=== PATIENT | female | born 1955 | race Caucasian/White ===

== ENCOUNTER 2017-06-07 07:58 | Emergency (ER) | payer BC ==
[2017-06-07 08:17] VITALS: BP 113/58
--- NOTE | 2017-06-07 08:58 | UC ---
Throat Pain/Nasal Octavio HPI - HPI Summary HPI Summary: 61 year old female wit sinus complaint. Also c/o cough, tooth pain for 3 days, and congestion worsening over past few days. with sinus infection and ear infection at home. [ End ] - History of Current Complaint Chief Complaint: UCRespiratory Stated Complaint: SINUS Time Seen by Provider: 06/07/17 08:54 Hx Obtained From: Patient Hx Last Menstrual Period: n/a Onset/Duration: Gradual Onset Severity: Moderate Cough: Productive - Allergies/Home Medications Allergies/Adverse Reactions: Allergies Allergy/AdvReac Type Severity Reaction Status Date / Time Sulfa Drugs Allergy Severe Rash Verified 06/07/17 08:16 Sulfa Antibiotics Allergy Rash Verified 06/07/17 08:16 Home Medications: Home Medications Folic Acid TAB* [Folvite TAB*] 1 mg PO DAILY 06/07/17 [History Confirmed ] Methotrexate TAB* 6 tab PO WEEKLY 06/07/17 [History Confirmed 06/07/17] predniSONE TAB* [Deltasone TAB*] 5 mg PO DAILY 06/07/17 [History Confirmed 06/07] PMH/Surg Hx/FS Hx/Imm Hx Previously Healthy: Yes - Surgical History Surgical History: Yes Surgery Procedure, Year, and Place: carpal tunnel surgery, joint replacement left ring finger from arthritis - Family History Known Family History: Positive: None, Hypertension - Social History Occupation: Employed Full-time - [employer] Lives: With Family Alcohol Use: Rare Substance Use Type: None Smoking Status (MU): Never Smoked Tobacco - Immunization History Most Recent Influenza Vaccination: not 2017 Review of Systems Constitutional: Fatigue ENT: Dental Pain, Sore Throat, Ear Ache, Nasal Discharge, Sinus Congestion, Sinus Pain/Tenderness Respiratory: Cough All Other Systems Reviewed And Are Negative: Yes Physical Exam Triage Information Reviewed: Yes Appearance: Well-Appearing, No Pain Distress, Well-Nourished Vital Signs: Initial Vital Signs Temp 98.4 F 06/07/17 08:13 Pulse 64 06/07/17 08:13 Resp 18 06/07/17 08:13 BP 113/58 06/07/17 08:13 Pulse Ox 98 06/07/17 08:13 Vital Signs Reviewed: Yes Eye Exam: Normal ENT Exam: Normal ENT: Positive: Pharynx normal, Nasal congestion, Nasal drainage, TM dull, Other : - bilateral frontal and maxillary sinus tenderness. Negative: Tonsillar swelling, Tonsillar exudate Dental Exam: Normal Neck exam: Normal Neck: Positive: 1 Respiratory Exam: Normal Cardiovascular Exam: Normal Musculoskeletal Exam: Normal Neurological Exam: Normal Psychological Exam: Normal Skin Exam: Normal Throat Pain/Nasal Course/Dx - Course Course Of Treatment: Viral at this time --- treat supportively -- if Sx persist or worsen then start augmentin -- she is aware and agreeable and aware of SE of abx. - Differential Dx/Diagnosis Differential Diagnosis/HQI/PQRI: Laryngitis, Pharyngitis, Sinusitis, Tonsillitis , URI Provider Diagnoses: sinus infection Discharge - Discharge Plan Condition: Good Disposition: HOME Prescriptions: Benzonatate [Benzonatate 200 MG] 200 mg PO TID #20 cap Cefdinir [Cefdinir 300 MG CAP] 300 mg PO BID #20 cap Patient Education Materials: Sinusitis (ED) Referrals: Mary Castellon MD [Primary Care Provider] - 4 Days Additional Instructions: As we discussed it appears you have a viral sinus infection. I advise to start claritin, flonase in the Am and in the PM the netti pot in the PM. If your symptoms worsen over the next 3-4 days please at that time you may start the antibiotics.
== END 2017-06-07 09:17 | disposition home or self-care (01) ==
LOC: UCCORT 07:58
DX: J32.9 Chronic sinusitis, unspecified (principal); Z88.1 Allergy status to other antibiotic agents; Z88.2 Allergy status to sulfonamides
CPT/HCPCS: 99212; G0463

== ENCOUNTER 2017-09-19 07:03 | Emergency (ER) | payer BC ==
[2017-09-19 07:27] VITALS: BP 119/73
[2017-09-19] MEDS ORDERED: cefTRIAXone VIAL(*) 1,000 MG VIAL IM ONE (07:38)
--- NOTE | 2017-09-19 07:46 | UC ---
Skin Complaint HPI - HPI Summary HPI Summary: Starting yesterday she has had right facial swelling and tenderness. She denies sinus pain, ear pain, dental pain or sore throat. This came on insidiously. - History of Current Complaint Chief Complaint: UCGeneralIllness Time Seen by Provider: 09/19/17 07:38 Stated Complaint: SWELLING IN FACE Hx Obtained From: Patient Hx Last Menstrual Period: n/a ?: No Onset/Duration: Gradual Onset, Lasting Hours Skin Exposure Onset/Duration: Hours Ago Timing: Constant Onset Severity: Moderate Current Severity: Moderate Pain Intensity: 3 Location: Discrete, Face Character: Swelling, Pain, Raised, Painful Aggravating Factor(s): Touch Alleviating Factor(s): Nothing Associated Signs & Symptoms: Positive: Tenderness - Allergy/Home Medications Allergies/Adverse Reactions: Allergies Allergy/AdvReac Type Severity Reaction Status Date / Time Sulfa Drugs Allergy Severe Rash Verified 09/19/17 07:26 Sulfa Antibiotics Allergy Rash Verified 09/19/17 07:26 Review of Systems Constitutional: Negative Skin: Other - right facial swelling. ENT: Sinus Congestion All Other Systems Reviewed And Are Negative: Yes PMH/Surg Hx/FS Hx/Imm Hx Previously Healthy: No - Surgical History Surgical History: Yes Surgery Procedure, Year, and Place: carpal tunnel surgery, joint replacement left ring finger from arthritis - Family History Known Family History: Positive: None, Hypertension - Social History Alcohol Use: Rare Substance Use Type: None Smoking Status (MU): Never Smoked Tobacco - Immunization History Most Recent Influenza Vaccination: not 2017 Physical Exam Triage Information Reviewed: Yes Appearance: Well-Appearing - Non toxic and pleasant. She is sad about her sons in , No Pain Distress, Well-Nourished Vital Signs: Initial Vital Signs Temp 100.3 F 09/19/17 07:20 Pulse 72 09/19/17 07:20 Resp 18 09/19/17 07:20 BP 119/73 09/19/17 07:20 Pulse Ox 97 09/19/17 07:20 Vital Signs Reviewed: Yes Eyes: Positive: Conjunctiva Clear ENT: Positive: Pharynx normal, Nasal congestion, TMs normal, Uvula midline. Negative: Pharyngeal erythema, Nasal drainage, TM bulging, TM dull, TM red, Tonsillar swelling, Tonsillar exudate, Trismus, Muffled voice, Hoarse voice, Dental tenderness, Sinus tenderness Neck: Positive: Supple, Nontender, No Lymphadenopathy Respiratory: Positive: Normal breath sounds, No respiratory distress, No accessory muscle use. Negative: Respiratory distress, Decreased breath sounds, Accessory muscle use, Crackles, Rhonchi, Stridor, Wheezing Cardiovascular: Positive: No Murmur, Pulses Normal, Brisk Capillary Refill Abdomen Description: Positive: No Organomegaly, Soft. Negative: Distended, Guarding Musculoskeletal: Positive: ROM Intact, No Edema Neurological: Positive: Alert, Muscle Tone Normal. Negative: Fatigued Psychological: Positive: Age Appropriate Behavior Skin: Positive: Other - Right facial swelling along the right jaw line. No ear swelling or tenderness. There is tenderness along this area. No neck swelling. No tenderness or swelling of the gums or salivary glands. Course/Dx - Course Course Of Treatment: Low grade fever. No tachycardia or rigors. We will aggresively manage what appears to be a right facial cellulitis. She agrees to warm compress, take antibiotics and see pcp or us in 1-2 days. She also agrees to go to ED immediately should there be any worsening such as fever/chills/ shakes. - Diagnoses Provider Diagnoses: right facial cellulitis. Discharge - Discharge Plan Condition: Good Disposition: HOME Prescriptions: Amoxicillin/Clavulanate TAB* [Augmentin TAB 875*] 875 mg PO BID #20 tab Patient Education Materials: Cellulitis (ED) Referrals: Mary Castellon MD [Primary Care Provider] - 2 Days
== END 2017-09-19 08:16 | disposition home or self-care (01) ==
LOC: UCCORT 07:03
DX: L03.211 Cellulitis of face (principal); R09.81 Nasal congestion; Z88.2 Allergy status to sulfonamides
CPT/HCPCS: 96372; 99212; G0463; J0696

== ENCOUNTER 2017-12-25 07:12 | Emergency (ER) | payer BC ==
--- OUTSIDE RECORDS SUMMARY | 2017-12-25 08:13 | XMS REPORT ---
:1955 External Reference #:[id number] Author Organization [facility] Address [address], [address] [place] [address] Phone [phone] Care Team Providers Name Role Phone Lisbeth Castellon MD Care Team Information Customer Experience Professional Unavailable Lisbeth Castellon MD Primary Care Physician Unavailable Payers Type Date Identification Numbers Payment Provider Subscriber Commercial Expires: Policy Number: Freddy Yoder Lang 2017 [id number] [place] PayID: [id number] [address] [place] [address] Medigap Part B Effective: 2017 Policy Number: Freddy Lang [id number] [place] Group Number: [id number] PO Box Group Name: [id number] PayID: [id number] Problems Date Description Provider Status Onset: 08/18/2003 Carpal tunnel syndrome Active Onset: 12/11/2013 Generalized osteoarthritis of Woo Pruett M.D., Active the hand FACS Onset: 05/19/2016 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 Onset: 02/01/2017 Other malaise Lisbeth Castellon MD Active Onset: 02/05/2017 Idiopathic non-specific Lisbeth Castellon MD Active interstitial pneumonitis Onset: 04/11/2017 Psoriatic dactylitis Lisbeth Castellon MD Active Onset: 06/22/2017 Exacerbation of intermittent Lisbeth Castellon MD Active asthma Onset: 10/30/2017 Indigestion Bill Ferguson MD Active Onset: 12/04/2013 Contusion of wrist Woo Pruett M.D., Resolved FACS Resolved: 07/12/2015 Onset: 12/11/2013 Contusion of hand Woo Pruett M.D., FACS Resolved Resolved: 07/12/2015 Onset: 07/30/2014 Hand joint pain Woo Pruett M.D., FACS Resolved Resolved: 07/12/2015 Onset: 12/04/2013 Sprain of wrist Woo Pruett M.D., FACS Resolved Resolved: 07/12/2015 Onset: 01/01/2014 Disorder of bone Woo Pruett M.D., FACS Resolved Resolved: 07/12/2015 Onset: 07/03/2016 Removal of suture Lisbeth Castellon MD Resolved Resolved: 09/21/2017 Family History Date Family Member(s) Problem(s) Comments General Lung Cancer General Diabetes General Heart Attack Father due to COPD () - 82 Father Lung Cancer Mother Diabetes Mellitus Type 2 Siblings 3 First Brother Arthritis Social History Type Date Description Comments Marital Status Lives With Home Environment Lives With Spouse Occupation [employer] Work Status Currently Working Work Status recently lost son Hand Dominance Right-handed Cigarette Use Never Smoked Cigarettes Smokeless Tobacco Never Used Smokeless Tobacco ETOH Use Drinks Alcoholic Beverages Occasionally Smoking Patient has never smoked Recreational Drug Use Denies Drug Use Daily Caffeine Consumes on average 3 cups of regular coffee per day Exercise Type/Frequency Exercises sporadically Allergies, Adverse Reactions, Alerts Date Description Reaction Status Severity Comments 12/04/2013 Sulfa Drugs active Medications Medication Date Status Form Strength Qnty SIG Indications Ordering Provider Ondansetron 11/02 Active Tablets 8mg 24tab one every R11.10 Jenniferleigh HCL /2017 s 6 hours Clune, GRID INSPECTOR as needed for nausea Montelukast 11/02 Active Tablets 10mg 30tab take 1 J30.9 Jenniferleigh Sodium s tablet Clune, GRID INSPECTOR daily. Ibuprofen 09/21 Active Tablets 600mg 60tab one every L03.211 Jenniferleigh s 6 hours Clune, GRID INSPECTOR by mouth as needed Pulmicort 08/03 Active Aerosol 180mcg/Ac 1unit inhale J45.20 Delphine Pollock /2016 t s one puff by mouth twice daily. please teach how to use inhaler. Proair HFA 02/05 Active Aerosol 108(90Bas 8.500 2 Lisbeth Castellon e) gm inhalatio mcg/Act ns every 4 hours as needed for wheezing, sob or persisten t cough Prednisone Active Tablets 5mg One Unknown /0000 tablet a day. Otezla Active Tablets 30mg 1 tab Camilo, /0000 twice a Lico MD day Fluticasone Active Suspension 50mcg/Act Use 2 Unknown Propionate / Sprays In Each Nostril qd Zoloft 10/30 Hx Tablets 25mg 30tab 1 tab by K30 Bill s mouth MD Phyllis every day Amoxicillin/C 10/12 Hx Tablets 500-125mg 20tab one by J01.90 Jenmarcieferpaul lavulanate s mouth JUANCARLOS CookP Potassium twice a day x 10 days Ondansetron 10/12 Hx Tablets 4mg 12tab 1 tab Tieshaferpaul HCL s every 6hr JUANCARLOS CookP as needed for nausea Qvar 07/16 Hx Aerosol 80mcg/Act 8.700 take 1 J45.20 Moris Linn ronny puff - twice 08/03 daily. teach how to use inhaler. rinse mouth after use. Montelukast 07/16 Hx Tablets 10mg 30tab take 1 J30.9 Moris Linn Sodium s tablet MD daily. Zithromax 07/09 Hx Tablets 250mg 1pack as Elena Hart-Chip directed PNP-BC, GRID INSPECTOR, - Ibclc 07/14 Fluticasone 07/03 Hx Suspension 50mcg/Act 16gm 2 sprays Alan Hart each nare PNP-BC, GRID INSPECTOR, once a Ibclc day Guaifenesin-C 07/03 Hx Syrup 100-10mg/ 120ml 5ml by R07.1 karrie Hart 5ML mouth q12 PNP-BC, GRID INSPECTOR, hours as Ibclc needed cough Reference #: [id number] Prednisone 06/22 Hx Tablets 50mg 3tabs 1 tab by J45.21 Lisbeth Castellon mouth MD - every day 07/03 until gone Amoxicillin/C 06/13 Hx Tablets 500-125mg 20tab one by J01.90 Delilah artienate /2016 s mouth Clune, GRID INSPECTOR Potassium - twice a 06/22 day x days Advair Diskus 02/05 Hx Aerosol 100-50mcg 60uni inhale Lisbeth Castellon, /Dose ts one puff MD by mouth twice a day gave sample exp. 07/13 Aleve 05/19 Hx Capsules 220mg 2 every Lisbeth Ravinder, 12 h as MD needed with food or snack No Active 07/12 Hx Unknown Medications /2014 - 05/19 Ketoconazole 02/02 Hx Shampoo 2% 120ml apply to Savita /2015 affected MD Rodolfo - areas and 07/12 wash off after 5 minutes. daily x5 days No Active 02/19 Hx Unknown Medications /2013 - 08/06 No Active 01/01 Hx Unknown Medications /2013 - 01/01 Advil 01/01 Hx Capsules 200mg prn Woo Barajas /2013 Ce Pruett, - FACS 02/19 Sulindac 12/11 Hx Tablets 200mg 40tab 1 po bid Woo Barajas s Ce Pruett, - FACS 01/01 No Active 12/04 Hx Unknown Medications /2013 - 12/11 Erythromycin 06/26 Hx Ointment 5mg/GM 1unit apply 08/28 Rosario s antonieta Jeff MD - strip to 07/12 left eye tid - qid x 7-10 days Glucosamine Hx Tablets Unknown Chondroitin /0000 Advanced - 07/12 Fish Oil Hx Capsules Unknown /0000 - 07/12 Flaxseed Oil Hx Capsules Unknown /0000 - 07/12 Ibuprofen Hx Tablets 600mg 30tab one q 8 Yvonne Sherin / s hours by M VISUAL BASIC PROGRAMMER - mouth as 07/12 needed Glucosamine Hx Capsules 1500Com 1 by Unknown Chondroitin /0000 mouth 1500 Complex twice a day Flax Seed Oil Hx Capsules 1300mg 1 by Unknown /0000 mouth daily Fish Oil Hx Capsules DR 1200mg take 1 Unknown /0000 cap by mouth daily Naproxen 00/00 Hx Tablets 500mg 1 tab po Zarrini, /0000 bid MD Jamari Methotrexate 00 Hx Tablets 2.5mg TK 6 TS Unknown /0000 PO Once - Weekly 06/22 Folic Acid 00 Hx Tablets 1mg TK 1 T PO Unknown /0000 qd - 06/22 Stelara Hx Soln 45mg/0.5M Once Unknown /0000 Prefill L every 3 - Syringe months 06/22 Levofloxacin 00 Hx Tablets 500mg Unknown /0000 Prednisone 00 Hx Tablets 5mg take 1 Unknown /0000 tablet - daily. 07/03 Benzonatate Hx Capsules 200mg Wolfgang, Rodolfo /0000 P., DO - 07/12 Cetirizine Hx Tablets 10mg TK 1 T PO Unknown HCL /0000 qd - 07/03 Cetirizine Hx Tablets 10mg TK 1 T PO Unknown HCL /0000 qd Amoxicillin/C Hx Tablets 875-125mg Sarmast, lavulanate /0000 MD Manoj Potassium - 10/[address] 40mg Mario, Sodium /0000 MD Igor Levofloxacin 00 Hx Tablets 500mg 1 tab po Mario, /0000 qd MD Igor Claritin Hx Capsules 10mg 1 by Unknown /0000 mouth every day Immunizations CPT Code Status Date Vaccine Lot # [id number] Given 07/12/2017 Influenza Virus Vaccine, Quadrivalent, Slit Virus, [id number] Im Use 83508 Given 07/03/2016 Influenza Virus Vaccine Split Virus Use For [id number] Individual 3Yr Older [id number] Given 07/12/2015 Influenza Vaccine (Fluzone) Age 3 And Older [id number] Given 07/21/2014 Influenza Vaccine (Fluzone) Age 3 And Older 00732 Given 07/21/2014 flu vaccination 94857 Given 06/18/2013 flu vaccination 80415 Given 09/07/2009 Influenza Vaccine, Pandemic Formulation, H1N1 97634 Given 09/07/2009 flu vaccination 69714 Given 09/07/2009 H1N1 Immuniation Adminstration Vital Signs Date Vital Result Comment 12/13/2017 BP Systolic Sitting Left Arm 112 mmHg BP Diastolic Sitting Left Arm 80 mmHg Heart Rate 66 /min Respiratory Rate 16 /min Height 59 inches 4'11" Weight 163.00 lb BMI (Body Mass Index) 32.9 kg/m2 BSA (Body Surface Area) 1.69 m2 [place] body weight in kilograms 45 11/02/2017 BP Systolic Sitting Left Arm 102 mmHg BP Diastolic Sitting Left Arm 62 mmHg Body Temperature 97.7 F Heart Rate 60 /min Respiratory Rate 18 /min Height 59 inches 4'11" Weight 161.25 lb BMI (Body Mass Index) 32.6 kg/m2 BSA (Body Surface Area) 1.68 m2 [place] body weight in kilograms 45 O2 % BldC Oximetry 96 % 10/30/2017 BP Systolic Sitting Left Arm 120 mmHg BP Diastolic Sitting Left Arm 74 mmHg Heart Rate 67 /min Respiratory Rate 16 /min Height 59 inches 4'11" Weight 162.00 lb BMI (Body Mass Index) 32.7 kg/m2 BSA (Body Surface Area) 1.69 m2 [place] body weight in kilograms 45 10/16/2017 BP Systolic Sitting Left Arm 118 mmHg BP Diastolic Sitting Left Arm 78 mmHg Heart Rate 64 /min Respiratory Rate 16 /min Height 59 inches 4'11" Weight 159.00 lb BMI (Body Mass Index) 32.1 kg/m2 BSA (Body Surface Area) 1.67 m2 [place] body weight in kilograms 45 10/12/2017 BP Systolic Sitting Left Arm 142 mmHg BP Diastolic Sitting Left Arm 82 mmHg Body Temperature 99.1 F Heart Rate 65 /min Respiratory Rate 20 /min Height 59 inches 4'11" [place] body weight in kilograms 45 O2 % BldC Oximetry 96 % 09/21/2017 BP Systolic Sitting Left Arm 102 mmHg BP Diastolic Sitting Left Arm 66 mmHg Body Temperature 97.6 F Height 59 inches 4'11" [place] body weight in kilograms 45 09/12/2017 BP Systolic Sitting Left Arm 110 mmHg BP Diastolic Sitting Left Arm 78 mmHg Heart Rate 57 /min Respiratory Rate 16 /min Height 59 inches 4'11" Weight 164.00 lb BMI (Body Mass Index) 33.1 kg/m2 BSA (Body Surface Area) 1.70 m2 [place] body weight in kilograms 45 O2 % BldC Oximetry 97 % Ora 08/03/2017 BP Systolic Sitting Right Arm 110 mmHg BP Diastolic Sitting Right Arm 72 mmHg Heart Rate 63 /min Respiratory Rate 14 /min Height 59 inches 4'11" Weight 165.00 lb BMI (Body Mass Index) 33.3 kg/m2 BSA (Body Surface Area) 1.70 m2 [place] body weight in kilograms 45 O2 % BldC Oximetry 94 % room air 07/16/2017 BP Systolic Sitting Left Arm 124 mmHg BP Diastolic Sitting Left Arm 84 mmHg Heart Rate 71 /min Respiratory Rate 16 /min Height 59 inches 4'11" Weight 166.00 lb BMI (Body Mass Index) 33.5 kg/m2 BSA (Body Surface Area) 1.70 m2 [place] body weight in kilograms 45 O2 % BldC Oximetry 95 % Room air 07/12/2017 BP Systolic Sitting Left Arm 108 mmHg BP Diastolic Sitting Left Arm 64 mmHg Body Temperature 99.0 F Height 59 inches 4'11" Weight 163.00 lb BMI (Body Mass Index) 32.9 kg/m2 BSA (Body Surface Area) 1.69 m2 [place] body weight in kilograms 45 07/03/2017 BP Systolic 123 mmHg BP Diastolic 68 mmHg Body Temperature 98.1 F Heart Rate 64 /min Height 59 inches 4'11" Weight 165.00 lb BMI (Body Mass Index) 33.3 kg/m2 BSA (Body Surface Area) 1.70 m2 [place] body weight in kilograms 45 O2 % BldC Oximetry 96 % 06/22/2017 BP Systolic Sitting Right Arm 115 mmHg BP Diastolic Sitting Right Arm 69 mmHg Body Temperature 98.5 F Heart Rate 60 /min Height 59 inches 4'11" Weight 163.00 lb BMI (Body Mass Index) 32.9 kg/m2 BSA (Body Surface Area) 1.69 m2 [place] body weight in kilograms 45 06/13/2017 BP Systolic Lying Down Resting Right Arm 116 mmHg BP Diastolic Lying Down Resting Right Arm 72 mmHg Body Temperature 98.7 F Height 59 inches 4'11" Weight 160.12 lb BMI (Body Mass Index) 32.3 kg/m2 BSA (Body Surface Area) 1.68 m2 [place] body weight in kilograms 45 04/26/2017 BP Systolic Sitting Left Arm 112 mmHg BP Diastolic Sitting Left Arm 74 mmHg Heart Rate 76 /min Respiratory Rate 16 /min Height 59 inches 4'11" Weight 160.00 lb BMI (Body Mass Index) 32.3 kg/m2 BSA (Body Surface Area) 1.68 m2 [place] body weight in kilograms 45 O2 % BldC Oximetry 96 % 04/11/2017 BP Systolic 118 mmHg BP Diastolic 66 mmHg Heart Rate 54 /min Height 59 inches 4'11" Weight 156.00 lb BMI (Body Mass Index) 31.5 kg/m2 BSA (Body Surface Area) 1.66 m2 [place] body weight in kilograms 45 03/28/2017 BP Systolic Sitting Left Arm 108 mmHg BP Diastolic Sitting Left Arm 62 mmHg Heart Rate 48 /min Respiratory Rate 16 /min Height 59 inches 4'11" Weight 157.00 lb BMI (Body Mass Index) 31.7 kg/m2 BSA (Body Surface Area) 1.66 m2 [place] body weight in kilograms 45 O2 % BldC Oximetry 98 % Room air 03/02/2017 BP Systolic Sitting Right Arm 102 mmHg BP Diastolic Sitting Right Arm 72 mmHg Heart Rate 54 /min Respiratory Rate 16 /min Height 59 inches 4'11" Weight 155.00 lb BMI (Body Mass Index) 31.3 kg/m2 BSA (Body Surface Area) 1.66 m2 [place] body weight in kilograms 45 02/05/2017 BP Systolic 110 mmHg BP Diastolic 76 mmHg Body Temperature 98.0 F Heart Rate 72 /min Height 59 inches 4'11" Weight 157.00 lb BMI (Body Mass Index) 31.7 kg/m2 BSA (Body Surface Area) 1.66 m2 [place] body weight in kilograms 45 02/01/2017 BP Systolic Sitting Left Arm 122 mmHg BP Diastolic Sitting Left Arm 70 mmHg Body Temperature 100.4 F Heart Rate 82 /min Height 59 inches 4'11" Weight 159.00 lb BMI (Body Mass Index) 32.1 kg/m2 BSA (Body Surface Area) 1.67 m2 [place] body weight in kilograms 45 O2 % BldC Oximetry 98 % ra 07/03/2016 BP Systolic Sitting Left Arm 120 mmHg BP Diastolic Sitting Left Arm 84 mmHg Body Temperature 97.9 F Heart Rate 60 /min Respiratory Rate 16 /min Height 59 inches 4'11" Weight 167.50 lb BMI (Body Mass Index) 33.8 kg/m2 BSA (Body Surface Area) 1.71 m2 06/19/2016 BP Systolic Sitting Left Arm 120 mmHg BP Diastolic Sitting Left Arm 76 mmHg Body Temperature 97.8 F Heart Rate 60 /min Respiratory Rate 16 /min Height 59 inches 4'11" Weight 170.25 lb BMI (Body Mass Index) 34.4 kg/m2 BSA (Body Surface Area) 1.72 m2 05/19/2016 BP Systolic Sitting Left Arm 132 mmHg BP Diastolic Sitting Left Arm 79 mmHg Body Temperature 98.0 F Heart Rate 64 /min Respiratory Rate 20 /min Height 59 inches 4'11" Weight 163.50 lb BMI (Body Mass Index) 33.0 kg/m2 BSA (Body Surface Area) 1.69 m2 [place] body weight in kilograms 45 12/29/2015 BP Systolic 118 mmHg BP Diastolic 76 mmHg Heart Rate 78 /min Height 59.0 inches 4'11" Weight 165.00 lb BMI (Body Mass Index) 33.3 kg/m2 BSA (Body Surface Area) 1.70 m2 07/12/2015 BP Systolic 96 mmHg BP Diastolic 60 mmHg Height 59 inches 4'11" Weight 162.50 lb BMI (Body Mass Index) 32.8 kg/m2 BSA (Body Surface Area) 1.69 m2 12/04/2013 BP Systolic Sitting Right Arm 122 mmHg BP Diastolic Sitting Right Arm 78 mmHg Height 60 inches 5'0" Weight 169.00 lb BMI (Body Mass Index) 33.0 kg/m2 BSA (Body Surface Area) 1.74 m2 Results Test Date Test Result H/L Range Note CBC 10/12/2017 White Blood Count 9.2 K/uL 3.1-10.7 1 Red Blood Count 4.09 M/uL 3.90-5.40 1 Hemoglobin 13.6 gm/dL 11.6-15.8 1 Hematocrit 40.0 % 36.0-46.1 1 Mean Cell Volume 97.8 fl 80.9-99.0 1 Mean Corpuscular HGB 33.3 pg High 25.9-32.7 1 Mean Corpuscular HGB Conc 34.0 g/dL 30.8-34.3 1 Platelet Count 282 K/uL 155-360 1 Red Cell Distri Width %CV 12.3 % 11.7-14.4 1 Mean Platelet Volume 10.0 fL 8.9-12.4 1 Protime 10/12/2017 Protime 12.4 seconds 12.0-14.4 1 Inr 0.9 0.9-1.1 1, 2 Comprehensive Metabolic Panel 10/12/2017 Glucose 95 mg/dL 74-106 1 BUN 11 mg/dL 7-18 1 Creatinine 0.7 mg/dL 0.6-1.3 1 Glom Filtration Rate, Estimate >60 mL/min >60 1 If >60 mL/min >60 1, 3 BUN/Creat 15.7 ratio 1 Sodium 143 mmol/L 136-145 1 Potassium 3.7 mmol/L 3.5-5.1 1 Chloride 107 mmol/L 98-107 1 Carbon Dioxide 28 mmol/L 21-32 1 Anion Gap 8 mEq/L 8-16 1 Calcium 9.0 mg/dL 8.5-10.1 1 Total Protein 7.8 g/dL 6.4-8.2 1 Albumin 3.8 g/dL 3.4-5.0 1 Globulin 4.0 g/dL 1.9-4.3 1 Alb/Glob 1.0 ratio 1 Bilirubin,Total 1.1 mg/dL High 0.2-1.0 1 Sgot/Ast 16 U/L 15-37 1 SGPT/Alt 27 U/L 12-78 1 Alkaline Phosphatase 77 U/L 45-117 1 Occult Blood,Stool 10/12/2017 Stool Occult NEGATIVE Negative 1, 4 Blood-Single Spec Respiratory Culture 07/27/2017 Gram Stain NO ORGANISMS SEE 5, 6 W/Gram St <SEE NOTE> Gram Stain RARE WHITE BLOOD <SEE NOTE> 5, 7 Respiratory Culture RESPIRATORY LEXIE <SEE NOTE> 5, 8 Anaerobic Culture W/ GR 07/27/2017 Gram Stain NO ORGANISMS SEE <SEE 5, 9 Stain NOTE> Gram Stain RARE WHITE BLOOD <SEE NOTE> 5, 10 Anaerobic Culture NO ANAEROBES ISO <SEE NOTE> 5, 11 Viral Culture 07/27/2017 Viral Culture No virus isolate 5, 12 <SEE NOTE> Afb Smear And Culture 07/27/2017 Afb Culture No acid fast anya 5, 13 <SEE NOTE> Protime 07/16/2017 Protime 12.2 seconds 12.0-14.4 14 Inr 0.9 0.9-1.1 14, 15 Laboratory test finding 07/16/2017 Immunoglobulin E,Total QNS IU/mL 0- 158 14, 16 Act Partial Thrombo Time 27.5 seconds 23.4-35.0 14 Allergens,Zone 1 07/16/2017 mRast Class (Text Only) (SEE NOTE) 14, 17 D Pteronyssinus >100 kU/L Class 14 D Farinae Mite 88.50 kU/L Class V 14 Cat Hair/Dander <0.10 kU/L Class 0 14 Dog Hair/Dander 0.12 kU/L Class 0/I 14 Bluegrass,[place] <0.10 kU/L Class 0 14 [place] Grass <0.10 kU/L Class 0 14 [place] Grass <0.10 kU/L Class 0 14 Cockroach,Lebanese <0.10 kU/L Class 0 14 Penicillium Not <0.10 kU/L Class 0 14 Cladosporium Herbarum <0.10 kU/L Class 0 14 Apergillis Fumigatus Ige <0.10 kU/L Class 0 14 Mucor Racemosus <0.10 kU/L Class 0 14 Alternaria Alternata <0.10 kU/L Class 0 14 Stemphylium Bot <0.10 kU/L Class 0 14 Birch,White <0.10 kU/L Class 0 14 [place],White <0.10 kU/L Class 0 14 Elm,Lebanese (White) <0.10 kU/L Class 0 14 Fernando,White <0.10 kU/L Class 0 14 Hazelnut Tree T004 Ige <0.10 kU/L Class 0 14 [place],White <0.10 kU/L Class 0 14 Ing[place],White <0.10 kU/L Class 0 14 [place] <0.10 kU/L Class 0 14 Ragweed,Short/ <0.10 kU/L Class 0 14 Mugwort <0.10 kU/L Class 0 14 Plantain,Peruvian <0.10 kU/L Class 0 14 Pigweed,Rough <0.10 kU/L Class 0 14 Sheep [place] (DO <0.10 kU/L Class 0 14 Nettle <0.10 kU/L Class 0 14 Maple/[place] Ige T001 0.52 kU/L Class I 14 Urine Culture 07/03/2017 Urine Culture NO GROWTH: FINAL 18, 19 <SEE NOTE> Laboratory test 06/28/2017 D-Dimer, Quantitative 0.51 ug/mL 20, 21 finding NT-proBNP 71.0 pg/mL <125 20 Differential-WBC Confirm 06/28/2017 Total Cells Counted 100 #CELLS 20 Band% 3 % 0-8 20 Neutrophils% 61 % 33-73 20 Lymph% 27 % 20-42 20 Atypical Lymph% 3 % 0-7 20 Monocyte% 6 % 0-10 20 Platelet Estimate NORMAL 20 Anisocytosis 1+ 20 Macrocytosis 1+ 20 Comprehensive Metabolic Panel 06/28/2017 Glucose 87 mg/dL 74-106 20 BUN 15 mg/dL 7-18 20 Creatinine 0.7 mg/dL 0.6-1.3 20 Glom Filtration Rate, Estimate >60 mL/min >60 20 If >60 mL/min >60 20, 22 BUN/Creat 21.4 ratio 20 Sodium 142 mmol/L 136-145 20 Potassium 4.0 mmol/L 3.5-5.1 20 Chloride 107 mmol/L 98-107 20 Carbon Dioxide 28 mmol/L 21-32 20 Anion Gap 7 mEq/L Low 8-16 20 Calcium 9.2 mg/dL 8.5-10.1 20 Total Protein 6.8 g/dL 6.4-8.2 20 Albumin 3.3 g/dL Low 3.4-5.0 20 Globulin 3.5 g/dL 1.9-4.3 20 Alb/Glob 0.9 ratio 20 Bilirubin,Total 0.8 mg/dL 0.2-1.0 20 Sgot/Ast 17 U/L 15-37 20 SGPT/Alt 26 U/L 12-78 20 Alkaline Phosphatase 77 U/L 45-117 20 Laboratory test finding 06/28/2017 CK 72 U/L 26-192 20 Laboratory test finding 06/28/2017 Slide Review DIFF ORDERED 20 CBS W/Automated Diff 06/28/2017 White Blood Count 6.9 K/uL 3.1-10.7 20 Red Blood Count 3.75 M/uL Low 3.90-5.40 20 Hemoglobin 13.1 gm/dL 11.6-15.8 20 Hematocrit 38.6 % 36.0-46.1 20 Mean Cell Volume 102.9 fl High 80.9-99.0 20 Mean Corpuscular HGB 34.9 pg High 25.9-32.7 20 Mean Corpuscular HGB Conc 33.9 g/dL 30.8-34.3 20 Platelet Count 340 K/uL 150-400 20 Red Cell Distri Width SD 47.9 fl High 3-47 20 Red Cell Distri Width %CV 13.2 % 11.7-14.4 20 Mean Platelet Volume 10.7 fL 8.9-12.4 20, 23 Neut# 3.79 K/uL 1.8-7.0 20 Lymph # 1.92 K/uL 1.0-4.0 20 [place] # 0.86 K/uL 0.3-0.9 20 Eos # 0.28 K/uL 0.0-0.5 20 Baso # 0.02 K/uL 0.0-0.1 20 CBS W/Automated Diff 03/28/2017 White Blood Count 6.9 K/uL 3.1-10.7 24 Red Blood Count 3.89 M/uL Low 3.90-5.40 24 Hemoglobin 13.5 gm/dL 11.6-15.8 24 Hematocrit 40.0 % 36.0-46.1 24 Mean Cell Volume 102.8 fl High 80.9-99.0 24 Mean Corpuscular HGB 34.7 pg High 25.9-32.7 24 Mean Corpuscular HGB Conc 33.8 g/dL 30.8-34.3 24 Platelet Count 300 K/uL 150-400 24 Red Cell Distri Width SD 48.3 fl High 3-47 24 Red Cell Distri Width %CV 13.3 % 11.7-14.4 24 Mean Platelet Volume 9.7 fL 8.9-12.4 24 Neut% 48.8 % 40.4-72.8 24 Lymph % 39.5 % 20.0-42.0 24 [place] % 10.0 % 4.3-13.2 24 Eo% 1.3 % 0.0-6.6 24 Bas% 0.4 % 0.0-1.1 24 Neut# 3.36 K/uL 1.8-7.0 24 Lymph # 2.72 K/uL 1.0-4.0 24 [place] # 0.69 K/uL 0.3-0.9 24 Eos # 0.09 K/uL 0.0-0.5 24 Baso # 0.03 K/uL 0.0-0.1 24 RBC # Bld Auto 02/01/2017 RBC # Bld Auto 3.68 Low 3.90-5.40 RDW RBC Auto 02/01/2017 RDW RBC Auto 43.5 3-47 RDW RBC Auto-Rto 02/01/2017 RDW RBC Auto-Rto 12.4 11.7-14.4 Serum or plasma 02/01/2017 Serum or plasma 1.6 0.5-3.6 creatine kinase MB creatine kinase MB measurement (ma measurement (mass/volume) Sodium SerPl-sCnc 02/01/2017 Sodium SerPl-sCnc 140 136-145 Prot SerPl-mCnc 02/01/2017 Prot SerPl-mCnc 7.2 6.4-8.2 Potassium SerPl-sCnc 02/01/2017 Potassium SerPl-sCnc 3.8 3.5-5.1 Platelets [#/volume] 02/01/2017 Platelets [#/volume] 308 150-400 in Blood by Automated in Blood by count Automated count PMV Bld Auto 02/01/2017 PMV Bld Auto 9.6 8.9-12.4 Neutrophils/leuk NFr 02/01/2017 Neutrophils/leuk NFr 34.4 Low 40.4-72.8 Bld Auto Bld Auto WBC # Bld Auto 02/01/2017 WBC # Bld Auto 6.2 3.1-10.7 Urine Culture 02/01/2017 Urine Culture URETHRAL MARLENY 25 Quantity 10,000 - 50,000 <SEE NOTE> 25, 26 Erythrocyte sedimentation 02/01/2017 Erythrocyte sedimentation 30 0-30 rate by 15 minute readin rate by 15 minute reading CBS W/Automated Diff 02/01/2017 White Blood Count 7.0 K/uL 3.1-10.7 25 Red Blood Count 3.79 M/uL Low 3.90-5.40 25 Hemoglobin 13.0 gm/dL 11.6-15.8 25 Hematocrit 37.9 % 36.0-46.1 25 Mean Cell Volume 100.0 fl High 80.9-99.0 25 Mean Corpuscular HGB 34.3 pg High 25.9-32.7 25 Mean Corpuscular HGB Conc 34.3 g/dL 30.8-34.3 25 Platelet Count 284 K/uL 150-400 25 Red Cell Distri Width SD 44.0 fl 3-47 25 Red Cell Distri Width %CV 12.5 % 11.7-14.4 25 Mean Platelet Volume 10.2 fL 8.9-12.4 25 Neut% 43.0 % 40.4-72.8 25 Lymph % 28.3 % 20.0-42.0 25 [place] % 17.0 % High 4.3-13.2 25 Eo% 11.1 % High 0.0-6.6 25 Bas% 0.6 % 0.0-1.1 25 Neut# 3.02 K/uL 1.8-7.0 25 Lymph # 1.99 K/uL 1.0-4.0 25 [place] # 1.19 K/uL High 0.3-0.9 25 Eos # 0.78 K/uL High 0.0-0.5 25 Baso # 0.04 K/uL 0.0-0.1 25 Laboratory test finding 02/01/2017 Sedimentation Rate 30 mm/hr 0-30 25, 27 Basic Metabolic Panel 02/01/2017 Glucose 105 mg/dL 74-106 25 BUN 14 mg/dL 7-18 25 Creatinine 0.7 mg/dL 0.6-1.3 25 Glom Filtration Rate, Estimate >60 mL/min >60 25 If >60 mL/min >60 25, 28 BUN/Creat 20.0 ratio 25 Sodium 141 mmol/L 136-145 25 Potassium 4.0 mmol/L 3.5-5.1 25 Chloride 106 mmol/L 98-107 25 Carbon Dioxide 28 mmol/L 21-32 25 Anion Gap 7 mEq/L Low 8-16 25 Calcium 9.1 mg/dL 8.5-10.1 25 CBS W/Automated Diff 02/01/2017 White Blood Count 6.2 K/uL 3.1-10.7 29 Red Blood Count 3.68 M/uL Low 3.90-5.40 29 Hemoglobin 12.5 gm/dL 11.6-15.8 29 Hematocrit 36.5 % 36.0-46.1 29 Mean Cell Volume 99.2 fl High 80.9-99.0 29 Mean Corpuscular HGB 34.0 pg High 25.9-32.7 29 Mean Corpuscular HGB Conc 34.2 g/dL 30.8-34.3 29 Platelet Count 308 K/uL 150-400 29 Red Cell Distri Width SD 43.5 fl 3-47 29 Red Cell Distri Width %CV 12.4 % 11.7-14.4 29 Mean Platelet Volume 9.6 fL 8.9-12.4 29 Neut% 34.4 % Low 40.4-72.8 29 Lymph % 34.6 % 20.0-42.0 29 [place] % 19.0 % High 4.3-13.2 29 Eo% 11.4 % High 0.0-6.6 29 Bas% 0.6 % 0.0-1.1 29 Neut# 2.13 K/uL 1.8-7.0 29 Lymph # 2.15 K/uL 1.0-4.0 29 [place] # 1.18 K/uL High 0.3-0.9 29 Eos # 0.71 K/uL High 0.0-0.5 29 Baso # 0.04 K/uL 0.0-0.1 29 Laboratory test finding 02/01/2017 CK-MB (Mass) 1.6 ng/ml 0.5-3.6 29 Alp SerPl-cCnc 02/01/2017 Alp SerPl-cCnc 93 45-117 Alt SerPl-cCnc 02/01/2017 Alt SerPl-cCnc 25 12-78 Albumin SerPl-mCnc 02/01/2017 Albumin SerPl-mCnc 3.4 3.4-5.0 Albumin/Glob SerPl 02/01/2017 Albumin/Glob SerPl 0.9 Anion Gap SerPl-sCnc 02/01/2017 Anion Gap SerPl-sCnc 4 Low 8-16 Aspartate 02/01/2017 Aspartate 19 15-37 aminotransferase aminotransferase [Enzymatic activity/vol [Enzymatic activity/volume] in Serum or Plasma BUN SerPl-mCnc 02/01/2017 BUN SerPl-mCnc 12 7-18 BUN/Creat SerPl 02/01/2017 BUN/Creat SerPl 17.1 Basophils [#/volume] in 02/01/2017 Basophils [#/volume] in 0.04 0.0-0.1 Blood by Automated Blood by Automated count count Basophils/leuk NFr Bld 02/01/2017 Basophils/leuk NFr Bld 0.6 0.0-1.1 Auto Auto Bilirub SerPl-mCnc 02/01/2017 Bilirub SerPl-mCnc 0.8 0.2-1.0 Co2 SerPl-sCnc 02/01/2017 Co2 SerPl-sCnc 27 21-32 Calcium SerPl-mCnc 02/01/2017 Calcium SerPl-mCnc 8.4 Low 8.5-10.1 Neutrophils # Bld Auto 02/01/2017 Neutrophils # Bld Auto 2.13 1.8-7.0 Monocytes/leuk NFr Bld 02/01/2017 Monocytes/leuk NFr Bld 19.0 High 4.3- 13.2 Auto Auto Monocytes # Bld Auto 02/01/2017 Monocytes # Bld Auto 1.18 High 0.3-0.9 MCV RBC Auto 02/01/2017 MCV RBC Auto 99.2 High 80.9-99.0 MCHC RBC Auto-mCnc 02/01/2017 MCHC RBC Auto-mCnc 34.2 30.8-34.3 MCH RBC Qn Auto 02/01/2017 MCH RBC Qn Auto 34.0 High 25.9-32.7 Lymphocytes/leuk NFr 02/01/2017 Lymphocytes/leuk NFr 34.6 20.0-42.0 Bld Auto Bld Auto Lymphocytes [#/volume] 02/01/2017 Lymphocytes [#/volume] 2.15 1.0-4.0 in Blood by Automated in Blood by Automated count count Hgb Bld-mCnc 02/01/2017 Hgb Bld-mCnc 12.5 11.6-15.8 Hct VFr Bld Auto 02/01/2017 Hct VFr Bld Auto 36.5 36.0-46.1 Glucose [Mass/volume] 02/01/2017 Glucose [Mass/volume] 111 High 74-106 in Serum or Plasma in Serum or Plasma Globulin Ser Calc-mCnc 02/01/2017 Globulin Ser Calc-mCnc 3.8 1.9-4.3 Eosinophil/leuk NFr Bld 02/01/2017 Eosinophil/leuk NFr Bld 11.4 High 0.0- 6.6 Auto Auto Eosinophil # Bld Auto 02/01/2017 Eosinophil # Bld Auto 0.71 High 0.0-0.5 Chloride SerPl-sCnc 02/01/2017 Chloride SerPl-sCnc 109 High 98-107 Creat SerPl-mCnc 02/01/2017 Creat SerPl-mCnc 0.7 0.6-1.3 Ua Routine 09/09/2016 Urine Color YELLOW Yellow 30 Urine Clarity CLEAR Clear 30 Urine Glucose - Dipstick NEGATIVE mg/dL Negative 30 Urine Bilirubin - Dipstick NEGATIVE Negative 30 Urine Ketone NEGATIVE mg/dL Negative 30 Urine Specific [place] 1.010 1.010-1.030 30 Urine Blood TRACE Negative 30 Urine PH 6.5 6.5-7.5 30 Urine Protein - Dipstick NEGATIVE mg/dL Negative 30 Urine Urobilinogen - Dipstick 0.2 E.U./dL 0.2-1.0 30 Urine Nitrite - Dipstick NEGATIVE Negative 30 Urine Leuk Esterase LARGE Negative 30 Urine RBC 2-5 rbc/hpf 0-2 30 Urine WBC 30-50 wbc/hpf High 0-7 30 Urine Epithelial Cells FEW /lpf None Seen 30 Source: URINE, CLEAN CAT <SEE 30, 31 NOTE> Urine Culture 09/09/2016 Urine Culture MIXED URETHRAL F <SEE NOTE> 30, 32 Quantity 10,000 - 50,000 <SEE NOTE> 30, 33 Laboratory test finding 09/09/2016 Urine Bilirubin Negative Negative Urine Ketones Negative Negative Urine Leukocyte Esterase Large High Negative Urine Nitrite Negative Negative Urine Protein Negative Negative Urine Urobilinogen 0.2 0.2-1.0 Urine Glucose (Ua) 09/09/2016 Urine Glucose (Ua) Negative Negative CBS W/Automated Diff 09/09/2016 White Blood Count 5.3 K/uL 3.1-10.7 30 Red Blood Count 3.65 M/uL Low 3.90-5.40 30 Hemoglobin 12.4 gm/dL 11.6-15.8 30 Hematocrit 36.0 % 36.0-46.1 30 Mean Cell Volume 98.6 fl 80.9-99.0 30 Mean Corpuscular HGB 34.0 pg High 25.9-32.7 30 Mean Corpuscular HGB Conc 34.4 g/dL High 30.8-34.3 30 Platelet Count 277 K/uL 155-360 30 Red Cell Distri Width SD 44.1 fl 3-47 30 Red Cell Distri Width %CV 12.7 % 11.7-14.4 30 Mean Platelet Volume 9.7 fL 8.9-12.4 30 Neut% 47.3 % 40.4-72.8 30 Lymph % 39.4 % 20.0-42.0 30 [place] % 8.8 % 4.3-13.2 30 Eo% 4.1 % 0.0-6.6 30 Bas% 0.4 % 0.0-1.1 30 Neut# 2.52 K/uL 1.8-7.0 30 Lymph # 2.10 K/uL 1.0-4.0 30 [place] # 0.47 K/uL 0.3-0.9 30 Eos # 0.22 K/uL 0.0-0.5 30 Baso # 0.02 K/uL 0.0-0.1 30 Laboratory test finding 09/09/2016 D-Dimer, Quantitative 0.49 ug/mL 30 , 34 Comprehensive Metabolic 09/09/2016 Glucose 110 mg/dL High 74-106 30 Panel BUN 13 mg/dL 7-18 30 Creatinine 0.6 mg/dL 0.6-1.3 30 Glom Filtration Rate, Estimate >60 mL/min >60 30 If >60 mL/min >60 30, 35 BUN/Creat 21.6 ratio 30 Sodium 145 mmol/L 136-145 30 Potassium 3.5 mmol/L 3.5-5.1 30 Chloride 111 mmol/L High 98-107 30 Carbon Dioxide 27 mmol/L 21-32 30 Anion Gap 7 mEq/L Low 8-16 30 Calcium 8.7 mg/dL 8.5-10.1 30 Total Protein 7.0 g/dL 6.4-8.2 30 Albumin 3.6 g/dL 3.4-5.0 30 Globulin 3.4 g/dL 1.9-4.3 30 Alb/Glob 1.1 ratio 30 Bilirubin,Total 0.6 mg/dL 0.2-1.0 30 Sgot/Ast 24 U/L 15-37 30 SGPT/Alt 42 U/L 12-78 30 Alkaline Phosphatase 62 U/L 45-117 30 Laboratory test finding 09/09/2016 Lipase 324 U/L 73-393 30 CK 110 U/L 26-192 30 Troponin-I < 0.015 ng/mL 30, 36 Laboratory test finding 09/09/2016 Alanine Aminotransferase (Alt/SGPT) 42 12-78 Albumin/Globulin Ratio 1.1 BUN/Creatinine Ratio 21.6 Basophils # (Auto) 0.02 0.0-0.1 Basophils (%) (Auto) 0.4 0.0-1.1 Blood Urea Nitrogen 13 7-18 Calcium Level 8.7 8.5-10.1 Carbon Dioxide Level 27 21-32 Chloride Level 111 High 98-107 Eosinophils # (Auto) 0.22 0.0-0.5 Eosinophils (%) (Auto) 4.1 0.0-6.6 Glucose Screen 110 High 74-106 Lymphocytes (%) (Auto) 39.4 20.0-42.0 Mean Corpuscular Hemoglobin 34.0 High 25.9-32.7 Mean Corpuscular Hemoglobin Concent 34.4 High 30.8-34.3 Mean Corpuscular Volume 98.6 80.9-99.0 Monocytes # (Auto) 0.47 0.3-0.9 Monocytes (%) (Auto) 8.8 4.3-13.2 Neutrophils (%) (Auto) 47.3 40.4-72.8 Potassium Level 3.5 3.5-5.1 RDW Coefficient of Variation 12.7 11.7-14.4 Red Cell Distribution Width 44.1 3-47 Sodium Level 145 136-145 Total Bilirubin 0.6 0.2-1.0 Aspartate Amino Transf 09/09/2016 Aspartate Amino Transf 24 15-37 (Ast/Sgot) (Ast/Sgot) Lymphocytes # (Auto) 09/09/2016 Lymphocytes # (Auto) 2.10 1.0-4.0 Neutrophils # (Auto) 09/09/2016 Neutrophils # (Auto) 2.52 1.8-7.0 Laboratory test 06/19/2016 Skin Biopsy <pending> finding Laboratory test 05/19/2016 Cardiac C-Reactive 1.21 <3.0 finding Protein Anti-Cyclic 05/19/2016 Anti-Cyclic 6 0-19 Citrullinated Peptide Citrullinated Peptide Anti-Nuclear Antibody 05/19/2016 Anti-Nuclear Antibody Negative Negative Titer Titer Erythrocyte 05/19/2016 Erythrocyte 9 0-30 Sedimentation Rate Sedimentation Rate CBS W/Automated Diff 05/19/2016 White Blood Count 6.2 K/uL 3.1-10.7 37 Red Blood Count 3.96 M/uL 3.90-5.40 37 Hemoglobin 13.0 gm/dL 11.6-15.8 37 Hematocrit 39.1 % 36.0-46.1 37 Mean Cell Volume 98.7 fl 80.9-99.0 37 Mean Corpuscular HGB 32.8 pg High 25.9-32.7 37 Mean Corpuscular HGB Conc 33.2 g/dL 30.8-34.3 37 Platelet Count 263 K/uL 155-360 37 Red Cell Distri Width SD 43.2 fl 3-47 37 Red Cell Distri Width %CV 12.2 % 11.7-14.4 37 Mean Platelet Volume 10.5 fL 8.9-12.4 37 Neut% 47.5 % 40.4-72.8 37 Lymph % 38.5 % 17.0-46.1 37 [place] % 9.3 % 4.3-13.2 37 Eo% 4.2 % 0.0-6.6 37 Bas% 0.5 % 0.0-1.1 37 Neut# 2.96 K/uL 1.8-7.0 37 Lymph # 2.40 K/uL 1.8-7.0 37 [place] # 0.58 K/uL 0.3-0.9 37 Eos # 0.26 K/uL 0.0-0.5 37 Baso # 0.03 K/uL 0.0-0.1 37 @[facility] Pat Id: [id number] 37 @[facility] Req #: [id number] 37 C-Reactive Protein,Cardiac 05/19/2016 C-Reactive 1.21 mg/L <3.0 37 Protein,Cardiac @EMR Pat Id: [id number] 37 @[facility] Req #: [id number] 37 Sedimentation Rate 05/19/2016 Sedimentation Rate 9 mm/hr 0-30 37 @EMR Pat Id: [id number] 37 @[facility] Req #: [id number] 37 Rheumatoid Factor 05/19/2016 Rheumatoid Factor < 10.0 IU/mL 0.0-15.0 37 Screen Screen @EMR Pat Id: [id number] 37 @[facility] Req #: [id number] 37 Anti-Nuclear 05/19/2016 Anti-Nuclear Negative AU/mL Negative 37, 38 Antibodies Direct Antibodies Direct @[facility] Pat Id: [id number] 37 @[facility] Req #: [id number] 37 CCP Igg/Iga Antibodies 05/19/2016 CCP Igg/Iga Antibodies 6 units 0-19 37 , 39 @EMR Pat Id: [id number] 37 @[facility]R Req #: [id number] 37 Laboratory test finding 07/12/2015 Cytology Pap See Note 40 Arthritis Panel([place]ospers) 07/30/2014 Sedimentation Rate 10 mm/hr 0-30 Rheumatoid Factor Screen NEGATIVE Negative Uric Acid 5.3 mg/dL 2.6-6.0 Antinuclear Antibodies, Ifa Negative . 41 CBS W/Automated Diff 07/30/2014 White Blood Count 6.9 K/uL 3.1-10.7 Red Blood Count 4.09 M/uL 3.90-5.40 Hemoglobin 13.3 gm/dL 11.6-15.8 Hematocrit 40.6 % 36.0-46.1 Mean Cell Volume 99.3 fl High 80.9-99.0 Mean Corpuscular HGB 32.5 pg 25.9-32.7 Mean Corpuscular HGB Conc 32.8 g/dL 30.8-34.3 Platelet Count 297 K/uL 155-360 Red Cell Distri Width SD 42.9 fl 3-47 Red Cell Distri Width %CV 12.0 % 11.7-14.4 Mean Platelet Volume 10.5 fL 8.9-12.4 Neut% 41.6 % 40.4-72.8 Lymph % 43.4 % 17.0-46.1 [place] % 9.3 % 4.3-13.2 Eo% 5.1 % 0.0-6.6 Bas% 0.6 % 0.0-1.1 Neut# 2.85 K/uL 1.0-7.0 Lymph # 2.98 K/uL 0.8-3.4 [place] # 0.64 K/uL 0.3-0.9 Eos # 0.35 K/uL 0.0-0.5 Baso # 0.04 K/uL 0.0-0.1 Laboratory test finding 06/22/2014 Antionette (Anti-Nuclear AB) Negative Negative Screen CRP High Sensitivity 0.60 mg/L 42 Erythrocyte Sed Rate 14 mm/Hr 0-30 Lyme Disease Serology Negative Negative 43 Rheumatoid Factor <15 Iu/ml <15 44 CBC Auto Diff 06/22/2014 Abs Basophils 0 10^3/uL 0-0.2 Abs Eosinophils 0.4 10^3/uL 0-0.6 Abs Lymphocytes 2.4 10^3/uL 1.0-4.8 Abs Monocytes 0.4 10^3/uL 0-0.8 Abs Neutrophils 2.1 10^3/uL 1.5-7.7 Abs Nucleated RBC 0 10^3/uL Basophil % 0.8 % 0-2 Eosinophil % 7.3 % High 0-6 Granulocyte % 38.8 % 38-83 Hematocrit 38 % 35-47 Hemoglobin 13.1 g/dL 12.0-16.0 Lymphocyte % 45.4 % 25-47 Mean Corpuscular HGB Conc 35 g/dL 31-36 Mean Corpuscular Hemoglobin 34 pg High 27-31 Mean Corpuscular Volume 98 fL High 80-97 Mean Platelet Volume 8 um3 7.4-10.4 Monocyte % 7.7 % 1-9 Nucleated Red Blood Cells % 0 Platelet Count 296 10^3/uL 150-450 Red Blood Count 3.88 10^6/uL Low 4.0-5.4 Red Cell Distribution Width 13 % 10.5-15 White Blood Count 5.4 10^3/uL 4.8-10.8 Laboratory test finding 07/02/2013 Surgical Pathology See Note 45 Laboratory test finding 06/30/2013 Fit Hemocult negative CBC Auto Diff 06/10/2012 Abs Basophils 0 10^3/uL 0-0.2 Abs Eosinophils 0.4 10^3/uL 0-0.6 Abs Lymphocytes 2.4 10^3/uL 1.0-4.8 Abs Monocytes 0.5 10^3/uL 0-0.8 Abs Neutrophils 3.1 10^3/uL 1.5-7.7 Abs Nucleated RBC 0.01 10^3/uL Basophil % 0.7 % 0-2 Eosinophil % 6.6 % High 0-6 Granulocyte % 47.6 % 38-83 Hematocrit 37 % 35-47 Hemoglobin 12.8 g/dL 12.0-16.0 Lymphocyte % 37.5 % 25-47 Mean Corpuscular HGB Conc 34 g/dL 31-36 Mean Corpuscular Hemoglobin 34 pg High 27-31 Mean Corpuscular Volume 99 fL High 80-97 Mean Platelet Volume 9 um3 7.4-10.4 Monocyte % 7.6 % 1-9 Nucleated Red Blood Cells % 0.1 Platelet Count 276 10^3/uL 150-450 Red Blood Count 3.77 10^6/uL Low 4.0-5.4 Red Cell Distribution Width 12 % 10.5-15 White Blood Count 6.5 10^3/uL 4.8-10.8 Comp Metabolic Panel 06/10/2012 Albumin 3.8 GM/DL 3.6-5.4 Albumin/Globulin Ratio 1.7 1-3 Alkaline Phosphatase 59 U/L 30-110 Alt 30 U/L 14-54 Anion Gap 6.0 mmol/L 2-11 Ast 21 U/L 12-42 BUN/Creatinine Ratio 15.7 8-20 Blood Urea Nitrogen 11 mg/dL 6-24 Calcium 9.4 mg/dL 8.1-9.9 Chloride 107 mmol/L 101-111 Co2 Carbon Dioxide 29.0 mmol/L 22-32 Creatinine 0.70 mg/dL 0.50-1.40 Egfr 112.1 >60 46 Egfr Non- 87.2 >60 Globulin 2.2 GM/DL 2-4 Glucose 87 mg/dL 70-100 Potassium 4.0 mmol/L 3.5-5.0 Sodium 142 mmol/L 133-145 Total Bilirubin 1.2 mg/dL High 0.1-1.0 47 Total Protein 6.0 GM/DL Low 6.2-8.1 Lipid Profile (Trig/Chol/HDL) 06/10/2012 Cholesterol 193 mg/dL Less than 200 48 Cholesterol/HDL Ratio 3.0 AVERAGE 1-4.44 HDL Cholesterol 64 mg/dL High 40-60 49 LDL Cholesterol 103.0 mg/dL High Less Than 100 Triglycerides 130 mg/dL 40-200 Laboratory test finding 06/10/2012 TSH (Thyroid Stimulating 2.97 MIU/ML 0.34-5.60 Horm) Laboratory test finding 06/10/2012 Cytology Pap See Note 50 1 VOMITED SOME BLOOD AFTER TAKING SINUS MEDICENE 2 THERAPEUTIC INR RANGE: 2.0 - 3.0 DVT, Pulmonary embolus, prophylaxis against venous thrombosis or systemic embolization in high risk patients. 2.5 - 3.5 Mechanical heart valves 3 Note: Persistent reduction for 3 months or more in an eGFR <60 mL/min/1.73 m2 defines CKD. Patients with eGFR values >/=60 mL/min/1.73 m2 may also have CKD if evidence of persistent proteinuria is present. The original MDRD equation for estimated GFR is not valid for patients less than 18 years of age. Additional information may be found at www.kdoqi.org. 4 Method: Flaquita Kimberlyn Hemoccult Card 5 CONSULT 07/25/17 6 NO ORGANISMS SEEN 7 RARE WHITE BLOOD CELLS 8 RESPIRATORY MARLENY 9 NO ORGANISMS SEEN 10 RARE WHITE BLOOD CELLS 11 NO ANAEROBES ISOLATED 12 No virus isolated. Performed at: [facility] [address] [id number] Superintendent Service: Shoaib Swan MD 13 No acid fast bacilli isolated after 6 weeks. Performed at: [facility] [id number] Superintendent Service: Ashly Cueto MD, Phone: [phone] 14 Z07.2,X58.085 15 THERAPEUTIC INR RANGE: 2.0 - 3.0 DVT, Pulmonary embolus, prophylaxis against venous thrombosis or systemic embolization in high risk patients. 2.5 - 3.5 Mechanical heart valves 16 Quantity was not sufficient for analysis. 17 Levels of Specific IgE Class Description of Class ----- < 0.10 0 Negative 0.10 - 0.31 0/I Equivocal/Low 0.32 - 0.55 I Low 0.56 - 1.40 II Moderate 1.41 - 3.90 III High 3.91 - 19.00 IV Very High 19.01 - 100.00 V Very High >100.00 Very High 18 N39.0 19 NO GROWTH: FINAL REPORT 20 COUGH THAT FEELS LIKE SHE IS BEING STABBED 21 <=0.49 ug/mL - Low likelihood of DIC, DVT or Pulmonary Embolism >0.49 ug/mL - Additional testing should be done to rule out DIC, DVT, or Pulmonary embolism as clinically indicated. ([facility] has established a 97.89% negative predictive value for thrombotic disease when a cutoff value of 0.5 ug/mL is used.) 22 Note: Persistent reduction for 3 months or more in an eGFR <60 mL/min/1.73 m2 defines CKD. Patients with eGFR values >/=60 mL/min/1.73 m2 may also have CKD if evidence of persistent proteinuria is present. The original MDRD equation for estimated GFR is not valid for patients less than 18 years of age. Additional information may be found at www.kdoqi.org. 23 06/28/17 1434: NEUT% previously reported as: 55.2 % Amended result called to: [] - 06/28/17 at 1434 06/28/17 1434: LYMPH % previously reported as: 27.9 % Amended result called to: [] - 06/28/17 at 1434 06/28/17 1434: MONO % previously reported as: 12.5 % Amended result called to: [] - 06/28/17 at 1434 06/28/17 1434: EO% previously reported as: 4.1 % Amended result called to: [] - 06/28/17 at 1434 06/28/17 1434: BAS% previously reported as: 0.3 % Amended result called to: [] - 06/28/17 at 1434 24 J30.89 25 R53.81 26 10,000 - 50,000 CFU/mL 27 Method: Sediplast Modified Westergren 28 Note: Persistent reduction for 3 months or more in an eGFR <60 mL/min/1.73 m2 defines CKD. Patients with eGFR values >/=60 mL/min/1.73 m2 may also have CKD if evidence of persistent proteinuria is present. The original MDRD equation for estimated GFR is not valid for patients less than 18 years of age. Additional information may be found at www.kdoqi.org. 29 SENT BY LISBETH CASTELLON FOR POSSIBLE BLOOD CLOT 30 BACK PAIN 31 URINE, CLEAN CATCH 32 MIXED URETHRAL MARLENY 33 10,000 - 50,000 CFU/mL PLATED THIS AM. 09/09/16 34 <=0.49 ug/mL - Low likelihood of DIC, DVT or Pulmonary Embolism >0.49 ug/mL - Additional testing should be done to rule out DIC, DVT, or Pulmonary embolism as clinically indicated. ([facility] has established a 97.89% negative predictive value for thrombotic disease when a cutoff value of 0.5 ug/mL is used.) 35 Note: Persistent reduction for 3 months or more in an eGFR <60 mL/min/1.73 m2 defines CKD. Patients with eGFR values >/=60 mL/min/1.73 m2 may also have CKD if evidence of persistent proteinuria is present. The original MDRD equation for estimated GFR is not valid for patients less than 18 years of age. Additional information may be found at www.kdoqi.org. 36 0.0 - 0.045 ng/mL: Normal 0.046 - 0.5 ng/mL: Suggestive 0.6 - 1.5 ng/mL: Consistent 37 M15.9 38 Performed at: - [address] [id number] Superintendent Service: Shoaib Swan MD, Phone: [phone] Performed at: - [facility] [address] [id number] Superintendent Service: Ashly Cueto MD, Phone: [phone] 39 Negative <20 Weak positive 20 - 39 Moderate positive 40 - 59 Strong positive >59 40 Interpretation: NEGATIVE FOR INTRAEPITHELIAL LESION OR MALIGNANCY. Specimen Adequacy: SATISFACTORY FOR EVALUATION. Additional Findings: ENDOCERVICAL/TRANSFORMATION ZONE PRESENT. Cytology Laboratory [address] [place] [address], [address] [place] [address] CYTOLOGY REPORT Name: Renetta SiegelVita : 1955 (Age: 59) Sex: F Location: [facility] Rec. # [id number] Date Collected: 07/12/2015 Billing #: [id number] Date Received: 07/13/2015 Requisition # [id number] Physician(s): DELILAH GUAMAN Source of Specimen: ENDOCERVICAL/ECTOCERVICAL THIN PREP Clinical Information: Date of Last Menstrual Period: None Provided Menstrual History: Post menopausal kf Electronic Signature DEVAN Lockhart (ASCP) Reported: 07/16/2015 [facility] Dx Code(s): Z01.411 41 Negative <1:80 Borderline 1:80 Positive >1:80 Performed at: - [facility] [address] [id number] Superintendent Service: Ashly Cueto MD, Phone: [phone] 42 Low risk: <1.00 Average risk: 1.00-3.00 High risk: >3.00 43 Serologic response to B. burgdorferi infection is not detected, but cannot rule out early infection during which low or undetectable antibody levels to B. burgdorferi may be present. If clinically indicated, a new serum specimen should be submitted in 7-14 days. Test Performed by: [facility] [address] [place] [address] Rodbuster: Júnior Gloria M.D. 44 Test Performed by: [facility] [address] [place] [address] Rodbuster: Júnior Gloria M.D. 45 Pathology Outreach, [address], [address] Phone [place] [phone] SURGICAL PATHOLOGY REPORT Name: Renetta Siegel Pathology #: [id number] : 1955 (Age: 57) Sex: F Location: [facility] Med. Rec. # Date of Procedure: 07/02/2013 Billing #: [id number] Date Received: 07/03/2013 Physician(s): DIANA CROUCH MD Specimen(s) Received: Left ear Clinical Information: Papilloma. Gross Description: Specimen received in formalin labeled with the patient's name is a rosen solis skin shave measuring 0.6 x 0.5 cm. The surface is covered by a raised granular lesion measuring 0.6 cm in greatest dimension. Bisected and submitted entirely. Also submitted is a rosen solis rubbery irregular tissue fragment measuring 0.3 x 0.4 cm. Submitted in toto. (1 block) kw /KBS Diagnosis: LEFT EAR, SEBORRHEIC KERATOSIS. Reported: 07/04/2013 Electronic Signature cf Ricardo Aguero MD [facility] Outreach Technical Laboratory [facility] ICD-9 Codes: 702.19 46 Because ethnic data is not always readily available, this report includes an eGFR for both -Americans and non- Americans. The National Kidney Disease Education Program (NKDEP) does not endorse the use of the MDRD equation for patients that are not between the ages of 18 and 70, are , have extremes of body size, muscle mass, or nutritional status, or are non- or non-. According to the National Kidney Foundation, irrespective of diagnosis, the stage of the disease is based on the level of kidney function: Stage Description GFR(mL/min/1.73 m(2)) 1 Kidney damage with normal or decreased GFR 90 2 Kidney damage with mild decrease in GFR 60- 89 3 Moderate decrease in GFR 30-59 4 Severe decrease in GFR 15-29 5 Kidney failure <15 (or dialysis) 47 A metabolite of Naproxen, O-desmethylnaproxen, has been shown to interfere with the [place] method for measuring total bilirubin. Samples from patients who have taken Naproxen have shown spurious elevation in total bilirubin levels. 48 Desirable: Less than 200 MG/DL Borderline-High Risk: 200-239 MG/DL High- Risk: 240 MG/DL and over 49 HDL Interpretation: Undesirable: High Risk: Less than 40 MG/DL Desirable: Low Risk: Greater than 60 MG/DL 50 Cytology Laboratory [address] [place] [address], [address] [place] [address] CYTOLOGY REPORT Name: Rickey Handley Renetta Abdelrahman : 1955 (Age: 56) Sex: F Location: [facility]. # Date Collected: 06/10/2012 Billing #: [id number] Date Received: 06/10/2012 Physician(s): SHERIN SAINZ NP Source of Specimen: ENDOCERVICAL/ECTOCERVICAL THIN PREP Clinical Information: Date of Last Menstrual Period: 2008 Specimen Adequacy: SATISFACTORY FOR EVALUATION. NO ENDOCERVICAL/TRANSFORMATION ZONE. General Categorization: NEGATIVE FOR INTRAEPITHELIAL LESION OR MALIGNANCY. jae Electronic Signature DEVAN Marino (ASCP) Reported: 06/12/2012 Cytology Outreach [facility] ICD-9 Code(s ) V72.31 Procedures Date CPT Code Description Status Comment 04/05/2017 34539 Bronchospasm Provocation Completed Evaluation Multi Spirometric Determinati 04/05/2017 61675 Spirometry Completed 03/16/2017 69498 Echocardiogram Complete Completed 03/02/2017 56176 EKG-Tracing And Report Completed 06/19/2016 46955 Biopsy Skin Lesion Completed 08/10/2015 Mammogram Completed Document: 08/10/15 - Digital Mammo Screen BilatBirads 2 07/30/2014 71566 Radiology, Hand: Minimum Completed Three Views 12/11/2013 53695 Radiology, Hand: Minimum Completed Three Views 07/02/2013 99649 Exc.Kole.Lesion/0.6 To 1.0 cm Completed 01/29/2012 14676 Destruct-Skin Completed Tags/Lesions-Local Anesthesia - First Lesion 07/19/2010 Colonoscopy Completed Document: 07/19/10 - Colonscopy - repeat 2020 Encounters Type Date Location Provider CPT E/M Dx Office Visit 11/02/2017 Family Medicine DENIZ Sanchez 24605 R11.10 9:45a J30.9 Office Visit 10/30/2017 3:15[place] [address] K30 Office Visit 10/16/2017 3:30[place] [address] K92.0 Office Visit 10/12/2017 9:15a Family Medicine DENIZ Sanchez 72287 J01.90 Office Visit 09/21/2017 1:00p Family Medicine DENIZ Sanchez 04581 L03.211 Office Visit 09/12/2017 2:45p [place] [address] J45.20 J30.9 Office Visit 08/03/2017 11:00a [place] [address] J45.20 J30.9 Z79.51 Office Visit 07/16/2017 3:45[place] [address] J45.20 J30.9 Z01.812 J41.0 Office Visit 07/12/2017 8:30a Family Medicine DENIZ Sanchez 52792 R07.89 R05 Z23 Office Visit 07/03/2017 1:15p Family Medicine Keke Duarte PNP-, [facility], [address] J30.9 Ibclc J45.21 R07.1 F32.1 G47.00 Office Visit 06/22/2017 1:00p [place] [address] J45.21 Office Visit 04/26/2017 1:45p [place] [address] R91.8 D72.1 J45.20 J30.89 Office Visit 04/11/2017 1:00p [place] [address] J84.113 L40.59 Office Visit 03/28/2017 1:00p [place] [address] J84.113 J84.113 Z79.899 Z79.899 J30.89 D72.1 D72.1 J45.20 J45.20 Office Visit 03/02/2017 1:00p [place] [address] J84.113 R00.1 R07.89 Office Visit 02/05/2017 8:30a [place] [address] J84.113 Office Visit 02/01/2017 9:45a [place] [address] R53.81 Office Visit 05/19/2016 11:15a [place] [address] M15.9 D48.5 Office Visit 12/29/2015 3:30p Family Medicine Jovita Charles M.D. 90941 Z00.00 Office Visit 07/12/2015 3:00p Family Medicine Delilah Cook [facility] 87553 Z01.411 Z23 Office Visit 08/06/2014 8:45a Orthopaedic Office Woo Pruett 89436 715.04 M.D., FACS Office Visit 07/30/2014 2:30p Orthopaedic Office [place] 39680 719.44 M.DVita, FACS 715.04 Office Visit 02/19/2014 3:15p Orthopaedic Office [place] 50234 V54.89 M.D., FACS Office Visit 01/01/2014 1:00p Orthopaedic Office Woo Pruett 21373 923.20 M.DVita, FACS 923.21 733.99 Office Visit 12/11/2013 3:00p Orthopaedic Office [place]oo Pruett 26890 923.20 M.D., FACS 715.04 719.44 Office Visit 12/04/2013 11:00a Orthopaedic Office [place] Pru[place] 97539 842.00 M.D., FACS 923.21 Plan of Care Future Appointment(s):04/15/2018 1:30 pm - Moris Linn MD at Tlkryefpedp58/19/ 2018 - Bill Ferguson MDK30 Functional dyspepsiaComments:plan continue current meds. Symptoms under controlrecommend counseling.
[2017-12-25] MEDS ORDERED: NS 0.9% 1000 ML* 1,000 ML IV ONE (08:59)
[2017-12-25] MEDS ORDERED: Ondansetron INJ* 2 MG/ML VIAL IV ONE (09:00)
[2017-12-25] MEDS ORDERED: HYDROcodone/ACETAMIN 5-325 MG* 1 TAB PO ONE (09:01)
[2017-12-25] MEDS ORDERED: SUMAtriptan SQ* 6 MG/0.5 ML VIAL SUBCUT ONE (10:21)
--- NOTE | 2017-12-25 10:22 | UC ---
Head Injury HPI - HPI Summary HPI Summary: 62 yo female c/o H/a, progressively worse x several days. H/a all over, but worse R forehead. No vis / aud changes. + n/v, this am. Has been able to drink a little at home, but not much. No rash. No fever /chills. No sob / cp . No diarrhea. + sinus "drip," no sore throat perse. No urinary sx. Hx migraines, last h/a this bad a long time ago. Last migraine needing tx (meds unclear) approx mar 2017. Has a pcp (not lately), used to have neurologist ( retired). No p/d/w. - History Of Current Complaint Chief Complaint: UCHeadache Stated Complaint: HEADACHE Time Seen by Provider: 12/25/17 08:47 Hx Obtained From: Patient Hx Last Menstrual Period: n/a Onset/Duration: Lasting Days Pain Intensity: 9 - Allergies/Home Medications Allergies/Adverse Reactions: Allergies Allergy/AdvReac Type Severity Reaction Status Date / Time Sulfa (Sulfonamide Allergy Rash Verified 12/25/17 08:17 Antibiotics) Home Medications: Home Medications Apremilast [Otezla] 30 mg PO BID 12/25/17 [History Confirmed 12/25/17] Budesonide Flexhaler 180 (NF) [Pulmicort Flexhaler 180 mcg/act (NF)] 180 mcg IN BID 12/25/17 [History Confirmed 12/25/17] Montelukast Sodium TAB* [Singulair TAB*] 10 mg PO DAILY 12/25/17 [History Confirmed 12/25/17] Tofacitinib Citrate [Xeljanz] 11 mg PO DAILY 12/25/17 [History Confirmed ] predniSONE TAB* [Deltasone TAB*] 5 mg PO DAILY 12/25/17 [History Confirmed 12/25] PMH/Surg Hx/FS Hx/Imm Hx Previously Healthy: No - see hpi - Surgical History Surgical History: Yes Surgery Procedure, Year, and Place: carpal tunnel surgery, joint replacement left ring finger from arthritis - Family History Known Family History: Positive: None, Hypertension - Social History Alcohol Use: Rare Substance Use Type: None Smoking Status (MU): Never Smoked Tobacco - Immunization History Most Recent Influenza Vaccination: not 2017 Review of Systems Constitutional: Fatigue Skin: Negative Eyes: Other - see hpi ENT: Other - see hpi Respiratory: Negative Cardiovascular: Negative Gastrointestinal: Other - see hpi Genitourinary: Other - see hpi Motor: Other - see hpi Neurovascular: Other - see hpi Musculoskeletal: Other: - see hpi Neurological: Headache Psychological: Other - tearful Is Patient Immunocompromised?: No All Other Systems Reviewed And Are Negative: Yes Physical Exam Triage Information Reviewed: Yes Appearance: Well-Nourished - lying down. + photophobic. Looks tired, uncomfortable. No acute distress. Vital Signs: Initial Vital Signs Temp 98.4 F 12/25/17 08:13 Pulse 58 12/25/17 08:13 Resp 19 12/25/17 08:13 BP 115/73 12/25/17 08:13 Pulse Ox 97 12/25/17 08:13 Vital Signs Reviewed: Yes Eye Exam: Normal - perrla approx 3mm. eomi. sw/cp. ENT Exam: Normal ENT: Positive: Pharynx normal, TM dull Neck exam: Normal Neck: Positive: Supple, Nontender, No Lymphadenopathy Respiratory Exam: Normal Respiratory: Positive: Chest non-tender, Lungs clear, Normal breath sounds, No respiratory distress, No accessory muscle use Cardiovascular Exam: Normal Cardiovascular: Positive: RRR, No Murmur, Pulses Normal, Brisk Capillary Refill Abdominal Exam: Other - + hyperactive bs. No focal tenderness. No cvat. Musculoskeletal Exam: Normal - moves all 4 ext's. gait not tested d/t pain (h/ a). No nystagmus. No tremor appreciated. Neurological Exam: Normal - cn 1-12 (incl no smell concern) present. neuro grossly nonfocal except h/a Psychological Exam: Normal - conversing easily and appropriately. Tearful, understandably . Skin Exam: Normal - no visible or reported rash. Head Injury Course/Dx - Course Course Of Treatment: 10:15 - recheck. s/p IVF's, IV zofran, norco po x 2. Slightly better, but not much. Will order imitrex. If not better, then ED. D/ w pt. 11:15 - recheck. S/p imitrex. Very slightly better. Still feels bad. + nausea. H/a still significant (albeit better). D/w Ms. Rickey Handley, I recommend further evaluation and management in in the ED. She expresses understanding and agreement. Questions as posed answered to the best of my ability. Her friend will drive her to the ED (she declines EMS). I spoke with Marly Kim NP 11:20am - Differential Dx/Diagnosis Provider Diagnoses: H/A. GI upset. Volume depletion Discharge - Sign-Out/Discharge Documenting (check all that apply): Discharge/Admit/Transfer - Discharge Plan Condition: Guarded Disposition: [facility] Patient Education Materials: Acute Headache (ED), Dehydration (ED), Acute Nausea and Vomiting (ED) Referrals: Mary Castellon MD [Primary Care Provider] - Additional Instructions: Go directly to the Emergency Department. Call 911 for problems en route. - Billing Disposition and Condition Condition: GUARDED Disposition: [facility]
[2017-12-25 11:21] VITALS: BP 125/64
== END 2017-12-25 12:01 | disposition short-term general hospital (02) ==
LOC: UCCORT 07:12
DX: R51 Headache (principal); K30 Functional dyspepsia; E86.9 Volume depletion, unspecified; Z88.2 Allergy status to sulfonamides
CPT/HCPCS: 96361; 96372; 96374; 99212; G0463; J2405; J3030

== ENCOUNTER 2018-04-08 16:14 | Emergency (ER) | payer BC ==
[2018-04-08 16:38] VITALS: BP 138/62
--- NOTE | 2018-04-08 17:06 | UC ---
Lower Extremity/Ankle HPI - HPI Summary HPI Summary: 62 year female presents with onset of right lower leg pain 3 days ago. Pain was initially limited to posterior ankle however patient reports that she later developed some pain in the back of the calf, knee, and upper leg. Second day of pain, she began with swelling and edema of the right lower leg and ankle. Denies fever, chills, erythema, numbness, tingling, CP, SOB, recent immobilization, surgery, known malignancy, personal or family history of clotting disorder. She has history of psoriatic arthritis and is currently on prednisone 5 mg daily, as well as Xeljanz and Arava. She states she did speak to her vice president industrial relations just prior to arrival who recommended increasing her prednisone for a few days then tapering. - History of Current Complaint Chief Complaint: UCLowerExtremity Stated Complaint: RIGHT FOOT COMPLAINT(SINCE 04/05/18) Time Seen by Provider: 04/08/18 16:41 Hx Obtained From: Patient Hx Last Menstrual Period: N/A ?: No Onset/Duration: Gradual Onset, Lasting Days - 3 Severity Initially: Mild Severity Currently: Moderate Pain Intensity: 2 Aggravating Factor(s): Standing, Ambulation, Other - weight bearing Alleviating Factor(s): Rest Able to Bear Weight: Yes - with significant pain - Risk Factors Gout Risk Factors: Age Over 40, Psoriasis DVT Risk Factors: Negative Septic Arthritis Risk Factor: Immunosuppressed - Allergies/Home Medications Allergies/Adverse Reactions: Allergies Allergy/AdvReac Type Severity Reaction Status Date / Time Sulfa (Sulfonamide Allergy Rash Verified 04/08/18 16:38 Antibiotics) Home Medications: Home Medications Ibuprofen TAB* [Motrin TAB* 600 MG] 600 mg PO Q6H PRN 04/08/18 [History Confirmed 04/08/18] Leflunomide (NF) [Arava (NF)] 10 mg PO DAILY 04/08/18 [History Confirmed ] PMH/Surg Hx/FS Hx/Imm Hx - Additional Past Medical History Additional PMH: Psoriatic arthritis Previously Healthy: Yes - Surgical History Surgical History: Yes Surgery Procedure, Year, and Place: carpal tunnel surgery, joint replacement left ring finger from arthritis - Family History Known Family History: Positive: Hypertension - Social History Occupation: Employed Full-time Lives: With Family Alcohol Use: Occasionally Substance Use Type: None Smoking Status (MU): Never Smoked Tobacco - Immunization History Most Recent Influenza Vaccination: not 2017 Review of Systems Constitutional: Negative Skin: Negative Respiratory: Negative Cardiovascular: Negative Motor: Decreased ROM - right ankle Neurovascular: Negative Musculoskeletal: Arthralgia, Calf Tenderness, Edema Is Patient Immunocompromised?: Yes All Other Systems Reviewed And Are Negative: Yes Physical Exam Triage Information Reviewed: Yes Appearance: Well-Appearing, No Pain Distress, Well-Nourished Vital Signs: Initial Vital Signs Temp 97.8 F 04/08/18 16:30 Pulse 67 04/08/18 16:30 Resp 17 04/08/18 16:30 BP 138/62 04/08/18 16:30 Pulse Ox 97 04/08/18 16:30 Vital Signs Reviewed: Yes Respiratory: Positive: Lungs clear, Normal breath sounds, No respiratory distress Cardiovascular: Positive: RRR, No Murmur, Pulses Normal, Brisk Capillary Refill Musculoskeletal: Positive: Strength Intact, ROM Limited @ - right ankle, flexion and extension d/t pain, Edema @ - lower leg and ankle. 1+ non-pitting., Other: - Tenderness at insertion of achilles tendon Neurological: Positive: Other: - sensation intact Skin Exam: Normal Lower Extremity Course/Dx - Course Course Of Treatment: 62 year old female with history of psoriatic arthritis presents with 3 day history of right lower leg pain and swelling. Her initial pain and pain at time of exam was limited to the insertion of the achilles tendon however patient provides history of pain in posterior calf, knee, and upper leg. No significant risk factors for DVT but in light of the lower extremity swelling cannot rule this out. Unlikely this represents a septic arthritis without fever or erythema. I suspect that this is an inflammatory episode related to her psoriatic arthritis however I am recommending evaluation in the ED to r/o DVT. - Differential Dx/Diagnosis Provider Diagnoses: right lower extremity pain and swelling Discharge - Sign-Out/Discharge Documenting (check all that apply): Patient Departure - Discharge Plan Condition: Stable Disposition: HOME-RECOMMEND TO ED Referrals: Mary Castellon MD [Primary Care Provider] - Additional Instructions: I suspect that your pain is an inflammatory response related to your psoriatic arthritis however I cannot rule out a possible blood clot in the deep veins of the leg (DVT). I am recommending that you go to the emergency room for further evaluation at this time. - Billing Disposition and Condition Condition: STABLE Disposition: Home-Recommend to ED
== END 2018-04-08 17:16 | disposition home health service (06) ==
LOC: UCCORT 16:14
DX: M79.661 Pain in right lower leg (principal); M79.651 Pain in right thigh; M25.571 Pain in right ankle and joints of right foot; L40.50 Arthropathic psoriasis, unspecified; Z88.1 Allergy status to other antibiotic agents
CPT/HCPCS: 99212; G0463

== ENCOUNTER 2018-07-29 12:41 | Emergency (ER) | payer BC ==
[2018-07-29 13:05] VITALS: BP 129/77
--- NOTE | 2018-07-29 13:23 | ED ---
Skin Complaint - HPI Summary HPI Summary: 62 yr old female with long standing psoriatic arthritis, and long standing prednisone use. The patient has been having new injections for the past month for her arthritis. She has also been weaning down from 5 mg BID prednisone over the past 10 days. She is complaining of mild rash flare up on her face, maxilla area, and upper chest and on her back; it is slight red and itchy. There has been no SOB, no tongue or throat swelling. - History of Current Complaint Chief Complaint: UCSkin Time Seen by Provider: 07/29/18 13:06 Stated Complaint: ITCHY SKIN COMPLAINT Hx Last Menstrual Period: N/A Pain Intensity: 0 - Allergy/Home Medications Allergies/Adverse Reactions: Allergies Allergy/AdvReac Type Severity Reaction Status Date / Time Sulfa (Sulfonamide Allergy Rash Verified 07/29/18 13:02 Antibiotics) Home Medications: Home Medications Secukinumab [Cosentyx] 150 mg SC MONTHLY 07/29/18 [History Confirmed 07/29/18] predniSONE TAB* [Deltasone TAB*] 5 mg PO DAILY 07/29/18 [History Confirmed 07/29] PMH/Surg Hx/FS Hx/Imm Hx Endocrine/Hematology History: Denies: Hx Diabetes, Hx Thyroid Disease Cardiovascular History: Denies: Hx Congestive Heart Failure, Hx Deep Vein Thrombosis, Hx Hypertension , Hx Myocardial Infarction, Hx Pacemaker/ICD Respiratory History: Reports: Hx Asthma Denies: Hx Chronic Obstructive Pulmonary Disease (COPD), Hx Lung Cancer, Hx Pneumonia, Hx Pulmonary Embolism GI History: Denies: Hx Gall Bladder Disease, Hx Gastrointestinal Bleed, Hx Ulcer, Hx Urosepsis History: Denies: Hx Kidney Stones, Hx Renal Disease Neurological History: Denies: Hx Dementia, Hx Migraine, Hx Seizures, Hx Transient Ischemic Attacks (TIA) Psychiatric History: Denies: Hx Anxiety, Hx Depression, Hx Schizophrenia, Hx Bipolar Disorder - Cancer History Hx Chemotherapy: No Hx Radiation Therapy: No - Surgical History Surgery Procedure, Year, and Place: carpal tunnel surgery, joint replacement left ring finger from arthritis Infectious Disease History: No Infectious Disease History: Denies: Traveled Outside the [place] in Last 30 Days - Family History Known Family History: Positive: None, Hypertension - Social History Alcohol Use: None Substance Use Type: Reports: None Smoking Status (MU): Never Smoked Tobacco Review of Systems Constitutional: Negative Negative: Shortness Of Breath Positive: Rash All Other Systems Reviewed And Are Negative: Yes Physical Exam Triage Information Reviewed: Yes Vital Signs On Initial Exam: Initial Vitals Temp Pulse Resp BP Pulse Ox 97.6 F 60 16 129/77 100 07/29/18 13:01 07/29/18 13:01 07/29/18 13:01 07/29/18 13:01 07/29/18 13:01 Vital Signs Reviewed: Yes Appearance: Positive: Well-Appearing, No Pain Distress Skin: Positive: Other - faint red, lichen type rash on face, upper chest, and back. No hives. Eyes: Positive: EOMI ENT: Positive: Pharynx normal Neck: Positive: Nontender Respiratory/Lung Sounds: Positive: Clear to Auscultation, Breath Sounds Present Cardiovascular: Positive: RRR. Negative: Murmur Abdomen Description: Positive: Nontender Musculoskeletal: Positive: Strength/ROM Intact Neurological: Positive: Sensory/Motor Intact, Alert, Oriented to Person Place, Time, CN Intact II-III Psychiatric: Positive: Normal - [place] Coma Scale Best Eye Response: 4 - Spontaneous Best Motor Response: 6 - Obeys Commands Best Verbal Response: 5 - Oriented Coma Scale Total: 15 Diagnostics - Vital Signs Vital Signs Temp Pulse Resp BP Pulse Ox 07/29/18 13:01 97.6 F 60 16 129/77 100 - Laboratory Lab Statement: Any lab studies that have been ordered have been reviewed, and results considered in the medical decision making process. Course/Dx - Course Course Of Treatment: 62 yr old female with skin flare up that is minor at this point. Likely due to her weaning off her chronic steroids. I have asked the patient to please call her plug drill operator and discuss her therapy. - Diagnoses Provider Diagnoses: Rash Discharge - Sign-Out/Discharge Documenting (check all that apply): Patient Departure All imaging exams completed and their final reports reviewed: No Studies - Discharge Plan Condition: Good Disposition: HOME Patient Education Materials: Psoriasis (ED) Referrals: Mary Castellon MD [Primary Care Provider] - 1 Day Lico Saravia [Medical Doctor] - 1 Day Additional Instructions: Please call your Rhematologist upon leaving here today. You need to be seen by him and discuss any adjustments to your treatment regimen. - Billing Disposition and Condition Condition: GOOD Disposition: Home
== END 2018-07-29 13:24 | disposition home or self-care (01) ==
LOC: UCCORT 12:41
DX: R21 Rash and other nonspecific skin eruption (principal); Z88.2 Allergy status to sulfonamides
CPT/HCPCS: 99211; G0463

== ENCOUNTER 2018-11-21 09:04 | Emergency (ER) | payer BC ==
--- NOTE | 2018-11-21 09:53 | UC ---
Skin Complaint HPI - HPI Summary HPI Summary: 1 wk of a 'cyst' at back of head. she has psoriatic arth and feels it may be related. painful tender area, she tries to scratch it to get rid of it but it has not. - History of Current Complaint Time Seen by Provider: 11/21/18 09:53 Stated Complaint: SKIN COMPLAINT Hx Obtained From: Patient Hx Last Menstrual Period: N/A Onset/Duration: Gradual Onset - 1 wk Onset Severity: Mild Current Severity: Mild Location: Discrete Aggravating Factor(s): Touch Alleviating Factor(s): Nothing - Allergy/Home Medications Allergies/Adverse Reactions: Allergies Allergy/AdvReac Type Severity Reaction Status Date / Time Sulfa (Sulfonamide Allergy Rash Verified 11/21/18 09:49 Antibiotics) Home Medications: Home Medications Cetirizine* [ZyrTEC 10 MG TAB*] 10 mg PO DAILY 11/21/18 [History Confirmed 11/21] Cholecalciferol TAB* [Vitamin D TAB*] 1,000 unit PO DAILY 11/21/18 [History Confirmed 11/21/18] PMH/Surg Hx/FS Hx/Imm Hx - Additional Past Medical History Additional PMH: PSORIATIC ARTHRITIS - Surgical History Surgical History: Yes Surgery Procedure, Year, and Place: carpal tunnel surgery, joint replacement left ring finger from arthritis - Family History Known Family History: Positive: None, Hypertension - Social History Alcohol Use: None Substance Use Type: None Smoking Status (MU): Never Smoked Tobacco - Immunization History Most Recent Influenza Vaccination: not 2017 Review of Systems All Other Systems Reviewed And Are Negative: Yes Constitutional: Positive: Negative Skin: Positive: Other - cyst at scalp, behind head Eyes: Positive: Negative Respiratory: Positive: Negative Cardiovascular: Positive: Negative Neurological: Negative: Headache Is Patient Immunocompromised?: Yes - on injections for psoriatic arth Physical Exam Triage Information Reviewed: Yes Appearance: Well-Appearing Vital Signs Reviewed: Yes Neck: Positive: No Lymphadenopathy Skin: Positive: Other - back of scalp has tender pimple and excoriations. Course/Dx - Course Course Of Treatment: Small pimple at occipatal aspect of scalp. Would have drained during visit but pt was in a grayson. We discussed at home warm compresses/hot showers to help express the area. No lymphadenopathy or fever. - Differential Diagnoses - Skin Complaint Differential Diagnoses: Abscess, Urticaria, Viral Exanthem, Other - Diagnoses Provider Diagnosis: Pimples Discharge - Sign-Out/Discharge Documenting (check all that apply): Patient Departure All imaging exams completed and their final reports reviewed: No Studies - Discharge Plan Condition: Good Disposition: HOME Patient Education Materials: Bailey Tar (On the skin) Referrals: Mary Castellon MD [Primary Care Provider] - Additional Instructions: We discussed the over the counter shampoo you should be using. Due to time constraints we discussed how to treat this issue at home. - Billing Disposition and Condition Condition: GOOD Disposition: Home
[2018-11-21 09:54] VITALS: BP 126/76
== END 2018-11-21 10:43 | disposition home or self-care (01) ==
LOC: UCCORT 09:04
DX: R23.8 Other skin changes (principal); Z88.2 Allergy status to sulfonamides
CPT/HCPCS: 99211; G0463